=== PATIENT | male | born 1985 | race Caucasian/White ===

== ENCOUNTER 2021-11-05 11:45 | Emergency (ER) | payer SELFPAY ==
[~2021-11-05] VITALS: Ht 177.8 cm; Wt 70.0 kg
[2021-11-05] MEDS ORDERED: LOPERAMIDE HCL 2MG CAPSULE PO ONE (13:45)
[2021-11-05] MEDS ORDERED: LOPERAMIDE HCL 2MG CAPSULE PO NR (14:00)
[2021-11-05] MEDS ORDERED: LOPE2CAP MT (14:53)
[2021-11-05 15:00] VITALS: BP 140/80
== END 2021-11-05 15:15 | disposition home or self-care (01) ==
LOC: ER 11:45
DX: R19.7 Diarrhea, unspecified (principal); Z90.49 Acquired absence of other specified parts of digestive tract; Z98.890 Other specified postprocedural states
CPT/HCPCS: 82962; 99282